=== PATIENT | male | born 1980 | race Caucasian/White ===

== ENCOUNTER 2017-06-08 11:10 | Emergency (ER) | payer OTHER ==
[2017-06-08 11:34] VITALS: BP 136/96; PULSE 77; RESP 18; TEMP 97.3
--- NOTE | 2017-06-08 12:30 | ED ---
General Adult HPI - General Chief complaint: Eye Problems Stated complaint: FB RT EYE - [facility] Time Seen by Provider: 06/08/17 11:51 Source: patient, RN notes reviewed Mode of arrival: ambulatory Limitations: no limitations - History of Present Illness Initial comments: Patient 37-year-old male who presents emergency room today with a chief complaint of right eye irritation off-and-on over the last 4 days. Patient does admit that he was at work 4 days ago. He states he had safety goggles on using a grinding wheel above his head. He states he felt something instantly into the right eye. He states he went to flush out. He states it lasted for approximately 20 minutes and then began feeling better. He states that he's had the symptoms come and go over the last 4 days. He states at this time is currently feeling fine. He states at times she feels a "sharp" type pain in the right eye. Patient denies any other complaints or symptoms. Patient denies any recent fever, chills, shortness of breath, chest pain, back pain, abdominal pain, nausea or vomiting, numbness or tingling, dysuria or hematuria, constipation or diarrhea, headaches, or any other complaints. - Related Data Home Medications Medication Instructions Recorded Confirmed Citalopram Hydrobromide [CeleXA] 20 mg PO DAILY 06/08/17 06/08/17 Famotidine [Pepcid] 20 mg PO BID 06/08/17 06/08/17 Losartan-Hctz 50-12.5 mg [Hyzaar 1 tab PO DAILY 06/08/17 06/08/17 50-12.5] Previous Rx's Medication Instructions Recorded Tobramycin 0.3% Ophth Soln [Tobrex 1 - 2 drop BOTH EYES QID 7 Days 06/08/17 0.3% Ophth Soln] Allergies Allergy/AdvReac Type Severity Reaction Status Date / Time Penicillins Allergy Rash/Hives Verified 06/08/17 11:38 Review of Systems ROS Statement: Those systems with pertinent positive or pertinent negative responses have been documented in the HPI. ROS Other: All systems not noted in ROS Statement are negative. Past Medical History Past Medical History: GERD/Reflux, Hypertension Additional Past Medical History / Comment(s): anxiety History of Any Multi-Drug Resistant Organisms: None Reported Past Surgical History: No Surgical Hx Reported, Tonsillectomy Past Psychological History: No Psychological Hx Reported Smoking Status: Never smoker Past Alcohol Use History: Daily Past Drug Use History: None Reported General Exam - General Exam Comments Initial Comments: General: The patient is awake and alert, in no distress, and does not appear acutely ill. Eye: Pupils are equal, round and reactive to light, extra-ocular movements are intact. No nystagmus. Mild redness to the right conjunctiva. No signs of icterus. Ears, nose, mouth and throat: There are moist mucous membranes and no oral lesions. Neck: The neck is supple, there is no tenderness or JVD. Cardiovascular: There is a regular rate and rhythm. No murmur, rub or gallop is appreciated. Respiratory: Lungs are clear to auscultation, respirations are non-labored, breath sounds are equal. No wheezes, stridor, rales, or rhonchi. Musculoskeletal: Normal ROM, no tenderness. Strength 5/5. Sensation intact. Pulses equal bilaterally 2+. Neurological: A&O x 3. CN II-XII intact, There are no obvious motor or sensory deficits. Coordination appears grossly intact. Speech is normal. Skin: Skin is warm and dry and no rashes or lesions are noted. Psychiatric: Cooperative, appropriate mood & affect, normal judgment. Limitations: no limitations Course Vital Signs 06/08/17 11:31 Temperature 97.3 F L Pulse Rate 77 Respiratory 18 Rate Blood Pressure 136/96 O2 Sat by Pulse 99 Oximetry Procedures - Procedures Initial comment: Patient's right eye was stained and checked with forcing with Wood's lamp revealing no foreign bodies. Lids were inverted and no foreign body seen. Slit lamp exam was also been performed revealing no abnormality. Medical Decision Making - Medical Decision Making Case discussed in detail with attending physician Dr. Núñez. Patient reexamined at this time shows no signs of distress resting comfortably. Patient 's CT reviewed and does show no sign of foreign body to right eye. Patient's pain and injury was to the right eye. Patient's CT does reveal possible calcification versus metallic foreign body in the left. This is felt to be most likely a calcification as there is no injury or trauma and no symptoms to the left eye. Patient will be started on antibiotic drops advised to follow-up with client service executive. Disposition Clinical Impression: Pain, eye, right Disposition: HOME SELF-CARE Condition: Good Instructions: Eye Foreign Body (ED) Additional Instructions: Please use antibiotic drops as prescribed and follow-up the client service executive tomorrow. Please return to emergency room if any symptoms increase or worsen or for any other concerns. Prescriptions: Tobramycin 0.3% Ophth Soln [Tobrex 0.3% Ophth Soln] 1 - 2 drop BOTH EYES QID 7 Days Referrals: Corby Zhou MD [Primary Care Provider] - 1-2 days Miko Valadez MD [STAFF PHYSICIAN] - 1-2 days Time of Disposition: 13:51
--- NOTE | 2017-06-08 13:12 | CT ---
EXAMINATION TYPE: CT orbits wo con DATE OF EXAM: 06/08/2017 COMPARISON: NONE HISTORY: Foreign body Rt eye CT DLP: 478.7 mGycm Automated exposure control for dose reduction was used. FINDINGS: Helical imaging through the orbits. Coronal reconstructions. There is metallic density coursing along the distribution of the superior oblique muscle on the left which is asymmetric. Lack of contrast could limit the exam. The globes show symmetric appearance. No other radiopaque foreign body evident. Inflammatory change present within the left maxillary sinus. O stiomeatal units are patent. IMPRESSION: METALLIC DENSITY PRESENT ON THE LEFT MAY BE RELATED TO THE TROCHLEA OF THE SUPERIOR OBLIQUE MUSCLE AL THOUGH THIS IS A SYMMETRIC APPEARANCE. POSSIBLE MUCUS RETENTION CYST OR POLYP IN THE LEFT MAXILLARY S INUS.
== END 2017-06-08 14:29 | disposition home or self-care (01) ==
LOC: EC 11:10
DX: H57.11 Ocular pain, right eye (principal); I10 Essential (primary) hypertension; K21.9 Gastro-esophageal reflux disease without esophagitis; F41.9 Anxiety disorder, unspecified; Z79.899 Other long term (current) drug therapy; Z88.0 Allergy status to penicillin
CPT/HCPCS: 70480; 99283

== ENCOUNTER 2018-04-29 09:27 | Emergency (ER) | payer MEDICARE ==
[2018-04-29 09:36] VITALS: RESP 18
[2018-04-29] MEDS ORDERED: SODIUM CHLORIDE 0.9% 1,000 ML IV STA (09:46)
--- NOTE | 2018-04-29 09:48 | ED ---
Abdominal Pain HPI - General Chief Complaint: Abdominal Pain Stated Complaint: LLQ PAIN Time Seen by Provider: 04/29/18 09:37 Source: patient, RN notes reviewed Mode of arrival: ambulatory Limitations: no limitations - History of Present Illness Initial Comments: 38-year-old male present emergency department with chief complaint of left lower quadrant abdominal pain. He states he had no symptoms yesterday but states that he woke up around 4:00 this morning with stabbing pain in his left lower quadrant. He has no history of diverticulitis or bowel infections. Denies any recent injury. He states he did have a vasectomy 2 weeks ago with symptoms of swelling and pain have improved from that. Patient reports fever no chills no night sweats. Denies any change of bowel habits including diarrhea melena mucus or blood. Patient states he's been urinating fine no dysuria no hematuria or urinary frequency. Patient states he has no back pain or flank pain and no history kidney stones. - Related Data Home Medications Medication Instructions Recorded Confirmed Citalopram Hydrobromide [CeleXA] 20 mg PO DAILY 06/08/17 04/29/18 Famotidine [Pepcid] 20 mg PO BID 06/08/17 04/29/18 Losartan-Hctz 50-12.5 mg [Hyzaar 1 tab PO DAILY 06/08/17 04/29/18 50-12.5] Previous Rx's Medication Instructions Recorded Ciprofloxacin HCl [Cipro] 500 mg PO Q12HR #20 tablet 04/29/18 metroNIDAZOLE [Flagyl] 500 mg PO TID #30 tab 04/29/18 Allergies Allergy/AdvReac Type Severity Reaction Status Date / Time Penicillins Allergy Rash/Hives Verified 04/29/18 10:03 Review of Systems ROS Statement: Those systems with pertinent positive or pertinent negative responses have been documented in the HPI. ROS Other: All systems not noted in ROS Statement are negative. Past Medical History Past Medical History: GERD/Reflux, Hypertension Additional Past Medical History / Comment(s): anxiety History of Any Multi-Drug Resistant Organisms: None Reported Past Surgical History: Tonsillectomy Additional Past Surgical History / Comment(s): vasectomy Past Psychological History: No Psychological Hx Reported Smoking Status: Never smoker Past Alcohol Use History: Daily Past Drug Use History: None Reported General Exam Limitations: no limitations General appearance: alert, in no apparent distress Respiratory exam: Present: normal lung sounds bilaterally. Absent: respiratory distress, wheezes, rales, rhonchi, stridor Cardiovascular Exam: Present: regular rate, normal rhythm, normal heart sounds. Absent: systolic murmur, diastolic murmur, rubs, gallop, clicks GI/Abdominal exam: Present: soft, tenderness (Moderate left lower quadrant tenderness), normal bowel sounds. Absent: distended, guarding, rebound, rigid Back exam: Absent: CVA tenderness (R), CVA tenderness (L) Skin exam: Present: warm, dry, intact, normal color. Absent: rash Course Vital Signs 04/29/18 04/29/18 09:33 11:23 Temperature 98.3 F 98.2 F Pulse Rate 88 74 Respiratory 18 18 Rate Blood Pressure 124/84 119/74 O2 Sat by Pulse 97 97 Oximetry Medical Decision Making - Medical Decision Making 38-year-old male present emergency from for left lower quadrant abdominal pain. Patient had laboratory, CT which shows evidence of moderate diverticulitis. There is no abscess or perforation. Patient will be started on Cipro, Flagyl and follow-up with on-call surgery. Return parameters were discussed. - Lab Data Result diagrams: 04/29/18 10:21 04/29/18 10:21 Lab Results 04/29/18 04/29/18 04/29/18 Range/Units 10:21 10:21 10:21 WBC 12.6 H (3.8-10.6) k/uL RBC 4.97 (4.30-5.90) m/uL Hgb 15.5 (13.0-17.5) gm/dL Hct 44.2 (39.0-53.0) % MCV 89.0 (80.0-100.0) fL MCH 31.3 (25.0-35.0) pg MCHC 35.1 (31.0-37.0) g/dL RDW 12.4 (11.5-15.5) % Plt Count 279 (150-450) k/uL PT (9.0-12.0) sec INR (<1.2) APTT (22.0-30.0) sec Sodium 138 (137-145) mmol/L Potassium 4.5 (3.5-5.1) mmol/L Chloride 103 (98-107) mmol/L Carbon Dioxide 23 (22-30) mmol/L Anion Gap 12 mmol/L BUN 15 (9-20) mg/dL Creatinine 0.74 (0.66-1.25) mg/dL Est GFR (CKD-EPI)AfAm >90 (>60 ml/min/1.73 sqM) Est GFR (CKD-EPI)NonAf >90 (>60 ml/min/1.73 sqM) Glucose 112 H (74-99) mg/dL Plasma Lactic Acid Krishna 0.6 L (0.7-2.0) mmol/L Calcium 9.4 (8.4-10.2) mg/dL Total Bilirubin 1.3 (0.2-1.3) mg/dL AST 26 (17-59) U/L ALT 72 (21-72) U/L Alkaline Phosphatase 65 (38-126) U/L Total Protein 7.0 (6.3-8.2) g/dL Albumin 4.2 (3.5-5.0) g/dL Amylase 42 (30-110) U/L Lipase 45 (23-300) U/L Urine Color Urine Appearance (Clear) Urine pH (5.0-8.0) Ur Specific [place] (1.001-1.035) Urine Protein (Negative) Urine Glucose (UA) (Negative) Urine Ketones (Negative) Urine Blood (Negative) Urine Nitrite (Negative) Urine Bilirubin (Negative) Urine Urobilinogen (<2.0) mg/dL Ur Leukocyte Esterase (Negative) Urine RBC (0-5) /hpf Urine WBC (0-5) /hpf Urine Mucus (None) /hpf 04/29/18 04/29/18 Range/Units 10:21 10:21 WBC (3.8-10.6) k/uL RBC (4.30-5.90) m/uL Hgb (13.0-17.5) gm/dL Hct (39.0-53.0) % MCV (80.0-100.0) fL MCH (25.0-35.0) pg MCHC (31.0-37.0) g/dL RDW (11.5-15.5) % Plt Count (150-450) k/uL PT 10.3 (9.0-12.0) sec INR 1.1 (<1.2) APTT 24.5 (22.0-30.0) sec Sodium (137-145) mmol/L Potassium (3.5-5.1) mmol/L Chloride (98-107) mmol/L Carbon Dioxide (22-30) mmol/L Anion Gap mmol/L BUN (9-20) mg/dL Creatinine (0.66-1.25) mg/dL Est GFR (CKD-EPI)AfAm (>60 ml/min/1.73 sqM) Est GFR (CKD-EPI)NonAf (>60 ml/min/1.73 sqM) Glucose (74-99) mg/dL Plasma Lactic Acid Krishna (0.7-2.0) mmol/L Calcium (8.4-10.2) mg/dL Total Bilirubin (0.2-1.3) mg/dL AST (17-59) U/L ALT (21-72) U/L Alkaline Phosphatase (38-126) U/L Total Protein (6.3-8.2) g/dL Albumin (3.5-5.0) g/dL Amylase (30-110) U/L Lipase (23-300) U/L Urine Color Yellow Urine Appearance Clear (Clear) Urine pH 5.5 (5.0-8.0) Ur Specific [place] 1.026 (1.001-1.035) Urine Protein Trace H (Negative) Urine Glucose (UA) Negative (Negative) Urine Ketones Negative (Negative) Urine Blood Trace H (Negative) Urine Nitrite Negative (Negative) Urine Bilirubin Negative (Negative) Urine Urobilinogen <2.0 (<2.0) mg/dL Ur Leukocyte Esterase Negative (Negative) Urine RBC <1 (0-5) /hpf Urine WBC <1 (0-5) /hpf Urine Mucus Many H (None) /hpf Disposition Clinical Impression: Diverticulitis Disposition: HOME SELF-CARE Condition: Stable Instructions: Diverticulitis Diet (ED), Diverticulitis (ED) Additional Instructions: Please return to the Emergency Department if symptoms worsen or any other concerns. Prescriptions: Ciprofloxacin HCl [Cipro] 500 mg PO Q12HR #20 tablet metroNIDAZOLE [Flagyl] 500 mg PO TID #30 tab Is patient prescribed a controlled substance at d/c from ED?: No Referrals: Corby Zhou MD [Primary Care Provider] - 1-2 days Lea Rodriguez MD [STAFF PHYSICIAN] - 1-2 days Time of Disposition: 11:45
[2018-04-29 10:40] LABS: HCT 44.2 % (39.0-53.0); HGB 15.5 gm/dL (13.0-17.5); MCH 31.3 pg (25.0-35.0); MCHC 35.1 g/dL (31.0-37.0); Mean Platelet Volume 6.7; Platelet Count 279 k/uL (150-450); RBC 4.97 m/uL (4.30-5.90); RDW 12.4 % (11.5-15.5); WBC 12.6 k/uL (3.8-10.6)
[2018-04-29 10:47] LABS: Appearance,Urine Clear (Clear); Bilirubin,Urine Negative (Negative); Blood,Urine Trace (Negative); Color,Urine Yellow; Glucose,Urine (UA) Negative (Negative); Ketones,Urine Negative (Negative); Leukocyte Esterase,Urine Negative (Negative); Mucus,Urine Many /hpf; Nitrite,Urine Negative (Negative); PH, Urine 5.5 (5.0-8.0); Protein,Urine Trace (Negative); RBC,Urine <1 /hpf (0-5); Specific Gravity,Urine 1.026 (1.001-1.035); Urobilinogen,Urine <2.0 mg/dL (<2.0); WBC,Urine <1 /hpf (0-5)
[2018-04-29 10:50] LABS: INR 1.1 (<1.2); Partial Thromboplastin Time 24.5 sec (22.0-30.0); Prothrombin Time 10.3 sec (9.0-12.0)
[2018-04-29 10:53] LABS: ALT 72 U/L (21-72); AST 26 U/L (17-59); Albumin 4.2 g/dL (3.5-5.0); Alkaline Phosphatase 65 U/L (38-126); Amylase 42 U/L (30-110); Anion Gap 12 mmol/L; Blood Urea Nitrogen 15 mg/dL (9-20); Calcium 9.4 mg/dL (8.4-10.2); Carbon Dioxide 23 mmol/L (22-30); Chloride 103 mmol/L (98-107); Glucose 112 mg/dL (74-99); Lipase 45 U/L (23-300); Potassium 4.5 mmol/L (3.5-5.1); Sodium 138 mmol/L (137-145); Total Bilirubin 1.3 mg/dL (0.2-1.3)
--- NOTE | 2018-04-29 11:15 | CT ---
EXAMINATION TYPE: CT abdomen pelvis w con DATE OF EXAM: 04/29/2018 COMPARISON: None HISTORY: Left lower quadrant pain since 4:[address] DLP: 1768.7 mGycm, Automated Exposure Control for Dose Reduction was Utilized. CONTRAST: CT scan of the abdomen and pelvis is performed without oral but with IV Contrast, patient injected wi th 100 mL of Isovue 300. FINDINGS: LUNG BASES: Dependent atelectasis is present bilaterally . LIVER/GB: Liver is diffusely low dense consistent with fatty infiltration. PANCREAS: No significant abnormality is seen. SPLEEN: No significant abnormality is seen. ADRENALS: No significant abnormality is seen. KIDNEYS: No significant abnormality is seen. BOWEL: Evaluation of bowel is slightly suboptimal secondary to lack of enteric contrast. There is non distended stomach seen. There is no suspicious small bowel dilatation. There are a few scattered diverticula in the colon. There is a prominent diverticulum left lower quad rant near junction of left and sigmoid colon axial image 42 with moderate ill-defined fluid and fat s tranding. Findings are consistent with acute diverticulitis. There is mild wall thickening of the col on from the splenic flexure through the rectum. This is presumed product of poor distention, a mild u nderlying long segment colitis is not excluded. There is no well-formed fluid collection or abscess. There is no pneumoperitoneum identified. PROSTATE/SEMINAL VESICLES: No gross abnormality seen. LYMPH NODES: No greater than 1cm abdominal or pelvic lymph nodes are appreciated. OSSEOUS STRUCTURES: There is transitional type L5 vertebra which is sacralized on the left. OTHER: There is small amount of free fluid in pelvis axial image 84. IMPRESSION: CT findings are consistent with a focal moderate acute diverticulitis in the left lower q uadrant near junction of left and sigmoid colon.
[2018-04-29 11:24] VITALS: BP 119/74; PULSE 74; TEMP 98.2
[2018-04-29 12:01] LABS: Eosinophils # (M) 0.13 k/uL (0-0.7); Lymphocytes # (M) 4.03 k/uL (1.0-4.8); Monocytes # (M) 0.63 k/uL (0-1.0); Neutrophils # (M) 7.81 k/uL (1.3-7.7); Neutrophils % (M) 62 %; Nucleated Red Blood Cells 0 /100 WBC (0-0); Total Cells Counted 100
[2018-04-29 12:02] LABS: Large Platelets Present
== END 2018-04-29 12:07 | disposition home or self-care (01) ==
LOC: EC 09:27
DX: K57.92 Diverticulitis of intestine, part unspecified, without perforation or abscess without bleeding (principal); K21.9 Gastro-esophageal reflux disease without esophagitis; I10 Essential (primary) hypertension; F41.9 Anxiety disorder, unspecified; Z98.52 Vasectomy status; Z79.899 Other long term (current) drug therapy; Z88.0 Allergy status to penicillin
CPT/HCPCS: 36415; 80053; 82150; 83605; 83690; 85025; 85610; 85730; 81001; 87040; 74177; 99284; 96360; Q9967

== ENCOUNTER 2019-12-21 08:47 | Emergency (ER) | payer MEDICARE ==
[2019-12-21] MEDS ORDERED: MORPHINE SULFATE 4 MG/ML SYRINGE IV STA (09:07)
[2019-12-21] MEDS ORDERED: KETOROLAC 30 MG/ML 1 ML VIAL IVP STA (09:07)
[2019-12-21] MEDS ORDERED: ONDANSETRON 4 MG/2 ML VIAL IVP STA (09:07)
[2019-12-21] MEDS ORDERED: SODIUM CHLORIDE 0.9% 1,000 ML IV STA ×2 (09:07)
--- NOTE | 2019-12-21 09:10 | ED ---
Abdominal Pain HPI - General Chief Complaint: Abdominal Pain Stated Complaint: abdominal pain Time Seen by Provider: 12/21/19 08:53 Source: patient, RN notes reviewed, old records reviewed Mode of arrival: ambulatory Limitations: no limitations - History of Present Illness Initial Comments: Patient is a pleasant 39-year-old male presents emergency department today for evaluation for 3 days of general nausea, "knots in his stomach and ". Patient reports that he's had some soft stools yesterday. Patient reports that his main concern was the pain seemed to be worsening in his lower abdomen and into his right scrotum and right testicle over the past few hours. 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 Patient reports that he has had no specific fevers or chills. He did notice that his urine has been somewhat darker than normal. Patient denies any associated chest pain or shortness of breath. - Related Data Home Medications Medication Instructions Recorded Confirmed Citalopram Hydrobromide [CeleXA] 20 mg PO DAILY 06/08/17 04/29/18 Famotidine [Pepcid] 20 mg PO BID 06/08/17 04/29/18 Losartan-Hctz 50-12.5 mg [Hyzaar 1 tab PO DAILY 06/08/17 04/29/18 50-12.5] Previous Rx's Medication Instructions Recorded Ciprofloxacin HCl [Cipro] 500 mg PO Q12HR #20 tablet 04/29/18 metroNIDAZOLE [Flagyl] 500 mg PO TID #30 tab 04/29/18 Ibuprofen [Motrin] 600 mg PO Q8HR PRN #30 tab 12/21/19 Allergies Allergy/AdvReac Type Severity Reaction Status Date / Time Penicillins Allergy Rash/Hives Verified 12/21/19 08:52 Review of Systems ROS Statement: Those systems with pertinent positive or pertinent negative responses have been documented in the HPI. ROS Other: All systems not noted in ROS Statement are negative. Past Medical History Past Medical History: GERD/Reflux, Hypertension Additional Past Medical History / Comment(s): anxiety History of Any Multi-Drug Resistant Organisms: None Reported Past Surgical History: Tonsillectomy Additional Past Surgical History / Comment(s): vasectomy Past Psychological History: No Psychological Hx Reported Smoking Status: Never smoker Past Alcohol Use History: Occasional Past Drug Use History: None Reported General Exam - General Exam Comments Initial Comments: 39 year old male no distress. Limitations: no limitations General appearance: alert, in no apparent distress Head exam: Present: atraumatic, normocephalic, normal inspection Eye exam: Present: normal appearance, PERRL, EOMI. Absent: scleral icterus, conjunctival injection, periorbital swelling ENT exam: Present: normal exam, mucous membranes moist Neck exam: Present: normal inspection. Absent: tenderness, meningismus, lymphadenopathy Respiratory exam: Present: normal lung sounds bilaterally. Absent: respiratory distress, wheezes, rales, rhonchi, stridor Cardiovascular Exam: Present: regular rate, normal rhythm, normal heart sounds. Absent: systolic murmur, diastolic murmur, rubs, gallop, clicks GI/Abdominal exam: Present: soft, normal bowel sounds. Absent: distended, tenderness, guarding, rebound, rigid exam: Present: testicular tenderness (right ) Extremities exam: Present: normal inspection, full ROM, normal capillary refill. Absent: tenderness, pedal edema, joint swelling, calf tenderness Back exam: Present: normal inspection Neurological exam: Present: alert, oriented X3, CN II-XII intact Psychiatric exam: Present: normal affect, normal mood Skin exam: Present: warm, dry, intact, normal color. Absent: rash Course Vital Signs 12/21/19 12/21/19 08:49 12:59 Temperature 98.6 F 98.1 F Pulse Rate 79 71 Respiratory 18 17 Rate Blood Pressure 132/72 118/76 O2 Sat by Pulse 98 95 Oximetry Medical Decision Making - Medical Decision Making 39 year old male presents with nausea, testicular pain starting over 8 hours ago. Patient had normal labs and normal ua. Patient scrotal us shows no torsion. evidence of varicocele.Patient had ct showing possible small bowel ileus. Patient has no vomiting. Discussed case with doctor susi, whom also examined patient. Discussed for testicular pain to use antiinflammatory medication. - Lab Data Result diagrams: 12/21/19 09:34 12/21/19 09:34 Lab Results 12/21/19 12/21/19 12/21/19 Range/Units 09:34 09:34 09:34 WBC 8.3 (3.8-10.6) k/uL RBC 5.37 (4.30-5.90) m/uL Hgb 16.3 (13.0-17.5) gm/dL Hct 46.2 (39.0-53.0) % MCV 86.0 (80.0-100.0) fL MCH 30.3 (25.0-35.0) pg MCHC 35.2 (31.0-37.0) g/dL RDW 11.7 (11.5-15.5) % Plt Count 249 (150-450) k/uL Neutrophils % (Manual) 58 % Lymphocytes % (Manual) 35 % Monocytes % (Manual) 7 % Neutrophils # (Manual) 4.81 (1.3-7.7) k/uL Lymphocytes # (Manual) 2.91 (1.0-4.8) k/uL Monocytes # (Manual) 0.58 (0-1.0) k/uL Nucleated RBCs 0 (0-0) /100 WBC Manual Slide Review Performed RBC Morphology Normal PT 10.7 (9.0-12.0) sec INR 1.0 (<1.2) APTT 22.7 (22.0-30.0) sec Sodium (137-145) mmol/L Potassium (3.5-5.1) mmol/L Chloride (98-107) mmol/L Carbon Dioxide (22-30) mmol/L Anion Gap mmol/L BUN (9-20) mg/dL Creatinine (0.66-1.25) mg/dL Est GFR (CKD-EPI)AfAm (>60 ml/min/1.73 sqM) Est GFR (CKD-EPI)NonAf (>60 ml/min/1.73 sqM) Glucose (74-99) mg/dL Calcium (8.4-10.2) mg/dL Total Bilirubin (0.2-1.3) mg/dL AST (17-59) U/L ALT (4-49) U/L Alkaline Phosphatase (38-126) U/L Total Protein (6.3-8.2) g/dL Albumin (3.5-5.0) g/dL Amylase (30-110) U/L Lipase (23-300) U/L Urine Color Yellow Urine Appearance Clear (Clear) Urine pH 5.5 (5.0-8.0) Ur Specific [place] 1.040 H (1.001-1.035) Urine Protein 1+ H (Negative) Urine Glucose (UA) Negative (Negative) Urine Ketones Negative (Negative) Urine Blood Negative (Negative) Urine Nitrite Negative (Negative) Urine Bilirubin Negative (Negative) Urine Urobilinogen 2.0 (<2.0) mg/dL Ur Leukocyte Esterase Negative (Negative) Urine WBC 1 (0-5) /hpf Ur Squamous Epith Cells 1 (0-4) /hpf Urine Mucus Many H (None) /hpf Stool Occult Blood (Negative) 12/21/19 12/21/19 Range/Units 09:34 09:34 WBC (3.8-10.6) k/uL RBC (4.30-5.90) m/uL Hgb (13.0-17.5) gm/dL Hct (39.0-53.0) % MCV (80.0-100.0) fL MCH (25.0-35.0) pg MCHC (31.0-37.0) g/dL RDW (11.5-15.5) % Plt Count (150-450) k/uL Neutrophils % (Manual) % Lymphocytes % (Manual) % Monocytes % (Manual) % Neutrophils # (Manual) (1.3-7.7) k/uL Lymphocytes # (Manual) (1.0-4.8) k/uL Monocytes # (Manual) (0-1.0) k/uL Nucleated RBCs (0-0) /100 WBC Manual Slide Review RBC Morphology PT (9.0-12.0) sec INR (<1.2) APTT (22.0-30.0) sec Sodium 136 L (137-145) mmol/L Potassium 3.6 (3.5-5.1) mmol/L Chloride 100 (98-107) mmol/L Carbon Dioxide 26 (22-30) mmol/L Anion Gap 10 mmol/L BUN 16 (9-20) mg/dL Creatinine 0.66 (0.66-1.25) mg/dL Est GFR (CKD-EPI)AfAm >90 (>60 ml/min/1.73 sqM) Est GFR (CKD-EPI)NonAf >90 (>60 ml/min/1.73 sqM) Glucose 118 H (74-99) mg/dL Calcium 9.0 (8.4-10.2) mg/dL Total Bilirubin 0.5 (0.2-1.3) mg/dL AST 39 (17-59) U/L ALT 82 H (4-49) U/L Alkaline Phosphatase 89 (38-126) U/L Total Protein 7.3 (6.3-8.2) g/dL Albumin 4.4 (3.5-5.0) g/dL Amylase 42 (30-110) U/L Lipase 115 (23-300) U/L Urine Color Urine Appearance (Clear) Urine pH (5.0-8.0) Ur Specific [place] (1.001-1.035) Urine Protein (Negative) Urine Glucose (UA) (Negative) Urine Ketones (Negative) Urine Blood (Negative) Urine Nitrite (Negative) Urine Bilirubin (Negative) Urine Urobilinogen (<2.0) mg/dL Ur Leukocyte Esterase (Negative) Urine WBC (0-5) /hpf Ur Squamous Epith Cells (0-4) /hpf Urine Mucus (None) /hpf Stool Occult Blood Negative (Negative) - Radiology Data Radiology results: report reviewed KUB shows normal bowel gas pattern. US scrotum shows varicocele. CT shows multiple loops of upper limits normal size bowel inlet abdomen with airlfluid levels and decompressed small bowel in right lower quadrant. No transition point seen and small bowel ileum is favored. hepatic steatosis appearing moderate grade with probable focal fatty sparing near gallbladder fossa. Disposition Clinical Impression: Testicular pain, Nausea Disposition: HOME SELF-CARE Condition: Good Instructions (If sedation given, give patient instructions): Varicocele (ED), Testicle Pain (ED) Additional Instructions: Please use medication as discussed. Please follow up with family doctor if symptoms have not improved over the next two days. Please return to the emergency room if your symptoms increase or worsen or for any other concern. Prescriptions: Ibuprofen [Motrin] 600 mg PO Q8HR PRN #30 tab PRN Reason: Pain Is patient prescribed a controlled substance at d/c from ED?: No Referrals: Corby Zhou MD [Primary Care Provider] - 1-2 days Time of Disposition: 12:45
--- NOTE | 2019-12-21 10:07 | XR ---
EXAMINATION TYPE: XR KUB DATE OF EXAM: 12/21/2019 COMPARISON: None INDICATION: Abdomen pain x4 days TECHNIQUE: Single view abdomen upright view FINDINGS: Colonic bowel gas is present. No suspicious differential air-fluid levels are present. No mass effect is evident Psoas margins are normal. No organomegaly is present. IMPRESSION: 1. Nonspecific colonic bowel gas.
[2019-12-21 10:09] LABS: Appearance,Urine Clear (Clear); Bilirubin,Urine Negative (Negative); Blood,Urine Negative (Negative); Color,Urine Yellow; Glucose,Urine (UA) Negative (Negative); Ketones,Urine Negative (Negative); Leukocyte Esterase,Urine Negative (Negative); Mucus,Urine Many /hpf; Nitrite,Urine Negative (Negative); PH, Urine 5.5 (5.0-8.0); Protein,Urine 1+ (Negative); Squamous Epithelial Cell,Urine 1 /hpf (0-4); WBC,Urine 1 /hpf (0-5)
[2019-12-21 10:15] LABS: ALT 82 U/L (4-49); AST 39 U/L (17-59); African American GFR (CKD) >90 (>60 ml/min/1.73 sqM); Albumin 4.4 g/dL (3.5-5.0); Alkaline Phosphatase 89 U/L (38-126); Amylase 42 U/L (30-110); Anion Gap 10 mmol/L; Blood Urea Nitrogen 16 mg/dL (9-20); Carbon Dioxide 26 mmol/L (22-30); Chloride 100 mmol/L (98-107); Glucose 118 mg/dL (74-99); Non-African American GFR(CKD) >90 (>60 ml/min/1.73 sqM); Potassium 3.6 mmol/L (3.5-5.1); Sodium 136 mmol/L (137-145); Total Bilirubin 0.5 mg/dL (0.2-1.3); Total Protein 7.3 g/dL (6.3-8.2)
[2019-12-21 10:21] LABS: Partial Thromboplastin Time 22.7 sec (22.0-30.0); Prothrombin Time 10.7 sec (9.0-12.0)
[2019-12-21 10:24] LABS: HCT 46.2 % (39.0-53.0); HGB 16.3 gm/dL (13.0-17.5); MCH 30.3 pg (25.0-35.0); MCHC 35.2 g/dL (31.0-37.0); Mean Platelet Volume 7.6; Platelet Count 249 k/uL (150-450); RBC 5.37 m/uL (4.30-5.90); RDW 11.7 % (11.5-15.5); WBC 8.3 k/uL (3.8-10.6)
--- NOTE | 2019-12-21 10:37 | US ---
EXAMINATION TYPE: US scrotum with doppler. Grayscale and color Doppler Duplex imaging performed of t he scrotum. DATE OF EXAM: 12/21/2019 COMPARISON: NONE CLINICAL HISTORY: right testicular pain. EXAM MEASUREMENTS: TESTICLES: Right Testicle: 3.7 x 2.0 x 2.9 cm Left Testicle: 4.2 x 1.9 x 2.7 cm EPIDIDYMIS HEAD: Right Epididymis: 0.6 cm Left Epididymis: 0.8 cm Doppler performed to assess for testicular vascularity; good bilateral color flow and waveforms are s een. There is no evidence of testicular torsion. Presence of hydroceles: No Presence of varicoceles: Yes, small on the left Slightly prominent and hypervascular right side epididymis, possible right sided epididymitis IMPRESSION: 1. Small left-sided varicoceles
[2019-12-21 10:38] LABS: Lymphocytes # (M) 2.91 k/uL (1.0-4.8); Monocytes # (M) 0.58 k/uL (0-1.0); Neutrophils # (M) 4.81 k/uL (1.3-7.7); Neutrophils % (M) 58 %; Nucleated Red Blood Cells 0 /100 WBC (0-0); Total Cells Counted 100
--- NOTE | 2019-12-21 11:35 | CT ---
EXAMINATION TYPE: CT abdomen pelvis w con DATE OF EXAM: 12/21/2019 COMPARISON: Scrotal ultrasound of the same date and CT dated 04/29/2018 HISTORY: scrotal pain CT DLP: 1778 mGycm Automated exposure control for dose reduction was used. TECHNIQUE: Helical acquisition of images was performed from the lung bases through the pelvis. CONTRAST: Performed without Oral Contrast and with IV Contrast, patient injected with 100 mL of Isovue 300. FINDINGS: LUNG BASES: Minimal bibasilar subsegmental dependent atelectasis LIVER/GB: Hepatic parenchyma is diffusely hypoattenuated in comparison to that of the spleen, most co mmonly seen in hepatic steatosis. This finding limits evaluation for hepatic masses. There is probabl e focal fatty sparing around the gallbladder fossa with relative hyperattenuation. No intrahepatic bi liary ductal dilatation. No cholelithiasis. PANCREAS: No significant abnormality is seen. SPLEEN: No significant abnormality is seen. ADRENALS: No nodularity or thickening. KIDNEYS: No hydronephrosis or nephrolithiasis. FREE AIR: No free air is visualized. ADENOPATHY: No greater than 1 cm short axis lymph node in the abdomen or pelvis. OSSEOUS STRUCTURES: Nonspecific lucent lesion of the left iliac bone measures 8 mm appearing stable from 2018. BOWEL: Small bowel loops are upper limits of normal size containing few air-fluid levels in the left mid abdomen. Although no transition point is seen the small bowel loops in the right mid abdomen and right lower quadrant are decompressed. There is an appendicolith in the nondilated appendix. No darlin appendiceal fat stranding. Descending colon is decompressed. IMPRESSION: 1. MULTIPLE LOOPS OF UPPER LIMITS NORMAL SIZE SMALL BOWEL IN THE LEFT MID ABDOMEN WITH AIR-FLUID LEVE LS AND DECOMPRESSED SMALL BOWEL IN THE RIGHT LOWER QUADRANT. NO DISTINCT TRANSITION POINT IS SEEN AND SMALL BOWEL ILEUS IS FAVORED. 2. HEPATIC STEATOSIS APPEARING MODERATE GRADE WITH PROBABLE FOCAL FATTY SPARING NEAR THE GALLBLADDER FOSSA.
[2019-12-21 13:00] VITALS: BP 118/76; PULSE 71; RESP 17; TEMP 98.1
== END 2019-12-21 13:01 | disposition home or self-care (01) ==
LOC: EC 08:47
DX: N50.811 Right testicular pain (principal); R11.0 Nausea; K21.9 Gastro-esophageal reflux disease without esophagitis; I10 Essential (primary) hypertension; F41.9 Anxiety disorder, unspecified; Z79.899 Other long term (current) drug therapy; Z88.0 Allergy status to penicillin
CPT/HCPCS: 36415; 80053; 82150; 83690; 85025; 85610; 85730; 82272; 81001; 74018; 93975; 76870; 74177; 99285; 96374; 96375 ×2; 96361 ×3; J2270; J2405; J1885; Q9967

== ENCOUNTER → 2019-12-31 | Day surgery (SDC) | payer MEDICARE, OTHER | CPT/HCPCS: 88305; 45378; 43239; J2250; J2001; J3010; J2704 ==

== ENCOUNTER 2020-07-14 20:46 | Emergency (ER) | payer OTHER ==
[2020-07-14 20:53] VITALS: RESP 18; TEMP 97.8
--- NOTE | 2020-07-14 20:57 | ED ---
Upper Extremity HPI - General Chief Complaint: Extremity Injury, Upper Stated Complaint: R Arm Injury Time Seen by Provider: 07/14/20 20:57 Source: patient Mode of arrival: ambulatory Limitations: no limitations - History of Present Illness Initial Comments: Patient is 40-year-old male presenting to the emergency department with chief complaint of right arm pain. Patient states he was going up a hill, lost balance and went backwards. States he attempted to brace himself during the fall with his right arm and developed pain. Patient states most of the pain is in his right elbow along the forearm as well. Patient states the pain is 10/10 and sharp in nature. States he does not want to move his arm due to pain. Denies any numbness or tingling. Denies taking medications to alleviate the symptoms. States this occurred about half hour prior to arrival. - Related Data Home Medications Medication Instructions Recorded Confirmed Omeprazole 20 mg PO DAILY 12/29/19 07/14/20 Losartan Potassium 100 mg PO DAILY 07/14/20 07/14/20 Metoprolol Succinate (ER) [Toprol 50 mg PO DAILY 07/14/20 07/14/20 Xl] Sildenafil Citrate 100 mg PO DAILY PRN 07/14/20 07/14/20 amLODIPine [Norvasc] 5 mg PO DAILY 07/14/20 07/14/20 hydroCHLOROthiazide [Hydrodiuril] 25 mg PO DAILY 07/14/20 07/14/20 Allergies Allergy/AdvReac Type Severity Reaction Status Date / Time Penicillins Allergy Rash/Hives Verified 07/14/20 21:43 Review of Systems ROS Statement: Those systems with pertinent positive or pertinent negative responses have been documented in the HPI. ROS Other: All systems not noted in ROS Statement are negative. Past Medical History Past Medical History: GERD/Reflux, Hypertension Additional Past Medical History / Comment(s): anxiety History of Any Multi-Drug Resistant Organisms: None Reported Past Surgical History: Tonsillectomy Additional Past Surgical History / Comment(s): vasectomy Past Anesthesia/Blood Transfusion Reactions: No Reported Reaction Past Psychological History: Anxiety Smoking Status: Never smoker Past Alcohol Use History: Occasional Past Drug Use History: None Reported - Past Family History Mother Family Medical History: No Reported History General Exam Limitations: no limitations General appearance: alert Head exam: Present: atraumatic, normocephalic, normal inspection Eye exam: Present: normal appearance, PERRL, EOMI Pupils: Present: normal accommodation ENT exam: Present: normal exam, normal oropharynx, mucous membranes moist, TM's normal bilaterally, normal external ear exam Neck exam: Present: normal inspection, full ROM. Absent: tenderness, meningismus Respiratory exam: Present: normal lung sounds bilaterally. Absent: respiratory distress, wheezes, rales Cardiovascular Exam: Present: regular rate, normal rhythm, normal heart sounds Extremities exam: Present: normal inspection (Some swelling noticed along the right distal forearm), tenderness (Tenderness along the midforearm and the distal forearm.), normal capillary refill, joint swelling (Mild swelling noted on the medial aspect right wrist.), other (+2 ulnar hemorrhage a pulse of bilateral. Sensation intact in the right upper extremity.). Absent: full ROM (Limited range of motion in the hand due to pain), pedal edema, calf tenderness Back exam: Present: normal inspection, full ROM. Absent: tenderness, CVA tenderness (R), CVA tenderness (L) Neurological exam: Present: alert, oriented X3, normal gait Psychiatric exam: Present: normal affect, normal mood Skin exam: Present: warm, dry, intact, normal color Course Vital Signs 07/14/20 20:48 Temperature 97.8 F Pulse Rate 87 Respiratory 18 Rate Blood Pressure 110/57 O2 Sat by Pulse 96 Oximetry Procedures - Nerve Block Consent Obtained: verbal consent Local Anesthetic Used: Lidocaine 1% Amount of anesthesia used: 6 Side: right Nerve Blocks: radial, hematoma block Procedure Successful: Yes Complications: none Patient Tolerated Procedure: well, no complications - Orthopedic Splinting/Casting Injury #1 Side: right Upper Extremity Injury Location: short arm Upper Extremity Immobilizer: volar splint, Yoni wrap, synthetic pre-padded splint Medical Decision Making - Medical Decision Making Patient is a 40-year-old male presenting to the emergency department with a chief complaint of right arm pain. On physical examination, patient is neurovascularly intact in the right upper extremity. He does have focal tenderness along the midshaft and distal forearm. Fracture was suspected he was immediately given IM morphine. Later, he also received IM Dilaudid. There is some swelling along the medial aspect of the distal forearm. X-ray reveals a metaphyseal fracture of the distal right radius. There is also an avulsion of the ulnar styloid. Hematoma block was performed which alleviated some of the discomfort. Finger traps were applied and the arm was left to hang for about 1 5-20 minutes. Short arm splint was applied. Patient was advised to alternate between Tylenol and Motrin for pain control. He was advised to follow with clinical pharmacy specialist. Strict return parameters were thoroughly discussed the patient was understanding ago. Case discussed with physician. Disposition Clinical Impression: Distal radius fracture, right, Fracture of ulnar styloid Disposition: HOME SELF-CARE Condition: Stable Instructions (If sedation given, give patient instructions): Arm Fracture in Adults (ED) Additional Instructions: Alternate between Tylenol and Motrin for pain control. Apply ice compress. Follow-up with orthopedics. Is patient prescribed a controlled substance at d/c from ED?: No Referrals: Ramón Zhou MD [STAFF PHYSICIAN] - 1-2 days Benedicto Dumont MD [STAFF PHYSICIAN] - 1-2 days Time of Disposition: 22:50
[2020-07-14] MEDS ORDERED: MORPHINE SULFATE 4 MG/ML SYRINGE IM STA (21:00)
--- NOTE | 2020-07-14 21:29 | XR ---
EXAMINATION TYPE: XR forearm RT DATE OF EXAM: 07/14/2020 COMPARISON: None HISTORY: Fall twisting arm, pain TECHNIQUE: 2 view right forearm FINDINGS: There is an impacted fracture of the distal metaphyseal radius. Ulnar styloid avulsion appe ars to be present. No additional fractures are evident. IMPRESSION: 1. Transverse fracture distal metaphyseal radius. 2. Ulnar styloid avulsion
--- NOTE | 2020-07-14 21:30 | XR ---
EXAMINATION TYPE: XR elbow complete RT DATE OF EXAM: 07/14/2020 COMPARISON: None HISTORY: Trauma, fall, pain TECHNIQUE: Three-view right elbow FINDINGS: Anterior fat pad is normal. No elevation of posterior fat pad is evident. Ulnar spur is pre sent from the olecranon. Radius aligns normally with the humerus. No acute fractures are evident. Follow-up images of the elbow could be performed 7-10 days from acute trauma for continued pain. IMPRESSION: 1. No acute osseous abnormality right elbow
[2020-07-14] MEDS ORDERED: LIDOCAINE 1% INJ 10MG/ML (20 ML MDV) SQ ONE (21:40)
[2020-07-14] MEDS ORDERED: HYDROmorphone 0.5 MG/0.5 ML SYRINGE IM STA (21:55)
[2020-07-14] MEDS ORDERED: GABAPENTIN 300 MG CAP PO STA (22:16)
[2020-07-14 23:04] VITALS: BP 106/65; PULSE 94
== END 2020-07-14 23:00 | disposition home or self-care (01) ==
LOC: EC 20:46
DX: S52.501A Unspecified fracture of the lower end of right radius, initial encounter for closed fracture (principal); S52.611A Displaced fracture of right ulna styloid process, initial encounter for closed fracture; I10 Essential (primary) hypertension; K21.9 Gastro-esophageal reflux disease without esophagitis; Z79.899 Other long term (current) drug therapy; Z88.0 Allergy status to penicillin; W17.89XA Other fall from one level to another, initial encounter; Y93.01 Activity, walking, marching and hiking; Y92.009 Unspecified place in unspecified non-institutional (private) residence as the place of occurrence of the external cause
CPT/HCPCS: 73080; 73090; 99283; 64450; 29125; 96372 ×2; J2270; J2001; J1170

== ENCOUNTER → 2021-02-07 | Outpatient (CLI) | payer OTHER ==
--- NOTE | 2021-02-07 21:48 | CONS ---
CONSULTATION DATE OF SERVICE: 02/07/2021. 41-year-old gentleman who has been evaluated in Sleep Center for sleepiness and tiredness, which he has after long hours of sleep. HISTORY OF PRESENT ILLNESS/SLEEP-WAKE EVALUATION: The patient sleeps by himself so no clear information about his snoring. He wakes up tired in the morning, has difficulties to pay attention, worry about his sleep, has problems with the memory, concentration, irritability, anxiety, sexual dysfunction, usually he does not take any naps. During the night he has feeling like he is falling. 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 on days off. No history of hypnagogic hallucinations, sleep paralysis or cataplexy. Ross Sleepiness Scale is 1. PAST MEDICAL HISTORY: Positive for hypothyroidism, hypertension, acid reflux. PAST SURGICAL HISTORY: Right arm fracture in 2019, tonsillectomy. MEDICATIONS: Synthroid 25 mcg once a day, omeprazole 20 mg once a day, Norvasc 5 mg once a day, hydrochlorothiazide once a day. Cozaar 100 mg once a day, metoprolol 50 mg once a day. SOCIAL HISTORY: Negative for smoking. Alcohol consumption occasional. FAMILY HISTORY: Arthritis, diabetes. REVIEW OF SYSTEMS: Feeling tired after long hours of sleep. On days off he sleeps from 2:00 pm until 8 a.m. No fevers. No double vision. No recent chest pain. No shortness of breath. No abdominal pain. No bleeding episodes. No blood in the urine. No seizure episodes. PHYSICAL EXAMINATION: GENERAL: gentleman without distress. BP 118/79, HR 85, RR 15, height 5 feet 8 inches, weight 234.2, temperature 97.8, oxygen saturation at room air 98%. BMI 35.5. HEENT: PERRLA, EOMI. Oropharynx low position of soft palate. Mallampati 3. Neck 16 inches in circumference. NECK: Supple, no JVD. Thyroid is not palpable. LUNGS: Clear to percussion and to auscultation. Good air exchange. No wheezing or rhonchi. HEART: S1, S2 regular. No murmurs, gallops, or rubs. ABDOMEN: Slightly obese. Soft and nontender. Bowel sounds are present. No organomegaly appreciated. EXTREMITIES: No clubbing or cyanosis. GUM WORKER: Awake, alert, and oriented X3. Cranial nerves 2 to 7 intact. There is no fasciculation or atrophy. noted. No focal deficits observed. IMPRESSION: 1. Feeling tiredness and sleepiness after many hours of sleep on days off. Patient sleeps from 2:00 pm until 8, 8:30 am, low position of soft palate, Mallampati 3, borderline size of neck, possible obstructive sleep apnea-hypopnea syndrome. 2. Differential diagnosis should include idiopathic hypersomnia with disordered people sleeps many hours. 3. Hypertension. 4. Acid reflux. 5. Hypothyroidism. 6. Status post tonsillectomy. 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 PLAN: 1. Polysomnography for evaluation of patient's breathing during sleep. 2. CPAP/BiPAP titration if sleep study confirms obstructive sleep apnea-hypopnea syndrome. 3. Preferable position during sleep on the side. 4. No driving if patient feels any sleepiness. 5. I will see patient for follow up visit to explain results of testing and following plan. Thank you very much for referring this patient for consultation. Sincerely, Delonte Rangel MD, PhD, FAASM Diplomat of [employer] Engineering Test Specialist of [facility] [place] MMODL / IJN: [id number] /
== END ==
LOC: SLEEP 16:34
PROVIDERS: ATTEND Internal Medicine
DX: R40.0 Somnolence (principal); E03.9 Hypothyroidism, unspecified; I10 Essential (primary) hypertension; K21.9 Gastro-esophageal reflux disease without esophagitis; Z90.09 Acquired absence of other part of head and neck
CPT/HCPCS: 99211

== ENCOUNTER → 2021-05-09 | Outpatient (CLI) | payer OTHER ==
--- NOTE | 2021-05-09 21:57 | SFUN ---
SLEEP CENTER FOLLOW UP NOTE DATE OF SERVICE: 05/09/2021 CLINICAL: 41-year-old gentleman has been followed in Sleep Center to discuss results of diagnostic polysomnogram and following plan. I discussed results of polysomnogram with the patient in detail. Total apnea-hypopnea index during the sleep study was 4.0, which considered to be in normal range by today's criteria, but amount of apnea-hypopnea index in REM sleep was significantly increased at 20.3. EMG showed significant amount of periodic limb movements of 25.3 times per hour but only 1.1 microarousals per hour. Patient continued to feel tiredness after awakenings from sleep. He does not feel refreshed after sleep. MEDICATIONS: Synthroid 25 mcg once a day, omeprazole 20 mg once a day, Norvasc 5 mg once a day, hydrochlorothiazide once a day. Cozaar 100 mg once a day, metoprolol 50 mg once a day. PHYSICAL EXAMINATION: GENERAL: Patient in no distress BP 125/75, HR 88, RR 15, height 5 feet 6 inches, weight 227, BMI 36.6, temperature 98.4. Oxygen saturation: 97%. HEENT: PERRLA, EOMI, evaluation of oropharynx showed tongue protrudes midline. On exam, oropharynx low position of soft palate. Mallampati III. Neck 16 inches in circumference. NECK: Supple, no JVD. Thyroid is not palpable. LUNGS: Clear to percussion and to auscultation. Good air exchange. No wheezing or rhonchi. HEART: S1, S2 regular. No murmurs, gallops, or rubs. ABDOMEN: Soft and nontender. Bowel sounds are present. No organomegaly appreciated. EXTREMITIES: No clubbing or cyanosis. ENTERPRISE APPLICATION ADMINISTRATOR: Awake, alert, and oriented X3. Cranial nerves 2 to 7 intact. There is no fasciculation or atrophy. No focal deficits observed. IMPRESSION: 1. Minimal abnormalities of respiration during the sleep. Total apnea-hypopnea index 4.0 with essentially to be in normal range by today's criteria. In REM sleep, overall, apnea-hypopnea index increased to 20.3. 2. Periodic limb movements have been documented during the sleep study 25.3 times per hour with 1.1 ( ) per hour. 3. Hypertension. 4. Acid reflux. 5. Anxiety. 6. Hypothyroidism. 7. Status post tonsillectomy. 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 PLAN: 1. I will start patient on treatment with Mirapex for periodic limb movements. I. 2. Will see patient for follow-up visit in about 2-3 months to evaluate clinical response and treatment. 3. The patient is still a candidate for the treatment with CPAP, I believe, although standard criterias today for treatment with CPAP were not met. 4. Aggressive losing weight program. 5. Preferable position during sleep on the side. 6. No driving if feeling sleepiness. Thank you very much for allowing me to participate in management of the patient. Sincerely, Delonte Rangel MD, PhD, FAASM Diplomat of [place] [employer] Sleep Medicine Board of [place] [employer]teration Hand [facility] [place] MMODL / AUGUSTN: [id number] /
== END ==
LOC: SLEEP 14:57
PROVIDERS: ATTEND Internal Medicine
DX: G47.30 Sleep apnea, unspecified (principal); G47.61 Periodic limb movement disorder; I10 Essential (primary) hypertension; K21.9 Gastro-esophageal reflux disease without esophagitis; F41.9 Anxiety disorder, unspecified; E03.9 Hypothyroidism, unspecified; Z90.09 Acquired absence of other part of head and neck; Z79.899 Other long term (current) drug therapy; Z88.0 Allergy status to penicillin

== ENCOUNTER 2024-01-29 11:22 | Emergency (ER) | payer OTHER ==
--- NOTE | 2024-01-29 11:58 | ED ---
URI HPI - General Chief Complaint: Upper Respiratory Infection Stated Complaint: SUSAN Time Seen by Provider: 01/29/24 11:40 Source: patient, RN notes reviewed Mode of arrival: ambulatory Limitations: no limitations - History of Present Illness Initial Comments: This is a 44-year-old male with history of hypertension and hypothyroidism who presents to the ED with chief complaint of cough, wheezing, shortness of breath over the past week and a half. Patient states that he initially went to an urgent care where he was prescribed promethazine discharged home. patient went to see his primary care provider on Friday where he was given a shot of steroid in addition to at home Tylenol and azithromycin. Patient states that he received another steroid shot yesterday. States he has taken 2 pills of the azithromycin. He denies known fevers at home did not have any thermometer yet states he has felt warm. States his cough is dry, however was productive with symptoms originally began. Denies history of asthma and or COPD. States he is taken Motrin at home relief. He was swabbed for flu and COVID last week which came back negative. States he has not had a chest x-ray. - Related Data Home Medications Medication Instructions Recorded Confirmed Omeprazole 20 mg PO DAILY 12/29/19 07/14/20 Losartan Potassium 100 mg PO DAILY 07/14/20 07/14/20 Metoprolol Succinate (ER) [Toprol 50 mg PO DAILY 07/14/20 07/14/20 Xl] Sildenafil Citrate 100 mg PO DAILY PRN 07/14/20 07/14/20 amLODIPine [Norvasc] 5 mg PO DAILY 07/14/20 07/14/20 hydroCHLOROthiazide [Hydrodiuril] 25 mg PO DAILY 07/14/20 07/14/20 Previous Rx's Medication Instructions Recorded Benzonatate [Tessalon Perles] 100 mg PO TID PRN #15 capsule 01/29/24 Allergies Allergy/AdvReac Type Severity Reaction Status Date / Time Penicillins Allergy Rash/Hives Verified 07/14/20 21:43 Review of Systems ROS Statement: Those systems with pertinent positive or pertinent negative responses have been documented in the HPI. ROS Other: All systems not noted in ROS Statement are negative. Past Medical History Past Medical History: GERD/Reflux, Hypertension Additional Past Medical History / Comment(s): anxiety History of Any Multi-Drug Resistant Organisms: None Reported Past Surgical History: Tonsillectomy Additional Past Surgical History / Comment(s): vasectomy Past Anesthesia/Blood Transfusion Reactions: No Reported Reaction Past Psychological History: Anxiety Smoking Status: Never smoker Past Alcohol Use History: Occasional Past Drug Use History: None Reported - Past Family History Mother Family Medical History: No Reported History General Exam Limitations: no limitations General appearance: alert, in no apparent distress Head exam: Present: atraumatic, normocephalic, normal inspection Eye exam: Present: normal appearance, PERRL, EOMI. Absent: scleral icterus, conjunctival injection, periorbital swelling ENT exam: Present: normal exam, mucous membranes moist Neck exam: Present: normal inspection. Absent: tenderness, meningismus, lymphadenopathy Respiratory exam: Present: normal lung sounds bilaterally, decreased breath sounds. Absent: respiratory distress, wheezes, rales, rhonchi, stridor Cardiovascular Exam: Present: regular rate, normal rhythm, normal heart sounds. Absent: systolic murmur, diastolic murmur, rubs, gallop, clicks GI/Abdominal exam: Present: soft, normal bowel sounds. Absent: distended, tenderness, guarding, rebound, rigid Extremities exam: Present: normal inspection, full ROM, normal capillary refill. Absent: tenderness, pedal edema, joint swelling, calf tenderness Back exam: Present: normal inspection Neurological exam: Present: alert, oriented X3, CN II-XII intact Psychiatric exam: Present: normal affect, normal mood Skin exam: Present: warm, dry, intact, normal color. Absent: rash Course Vital Signs 01/29/24 01/29/24 01/29/24 11:39 11:54 13:00 Temperature 98.1 F Pulse Rate 77 74 Respiratory 18 18 Rate Blood Pressure 117/76 O2 Sat by Pulse 97 Oximetry 01/29/24 01/29/24 13:08 13:12 Temperature 98.1 F Pulse Rate 76 72 Respiratory 18 Rate Blood Pressure 115/85 O2 Sat by Pulse 98 Oximetry Medical Decision Making - Medical Decision Making Was pt. sent in by a medical professional or institution (, PA, CHEMIC MANGLER, urgent care, hospital, or fpc...) When possible be specific @ -No Did you speak to anyone other than the patient for history (EMS, parent, family, police, friend...)? What history was obtained from this source @ -No Did you review nursing and triage notes (agree or disagree)? Why? @ -I reviewed and agree with nursing and triage notes Were old charts reviewed (outside hosp., previous admission, EMS record, old EKG, old radiological studies, urgent care reports/EKG's, fpc records)? Report findings @ -No old charts were reviewed Differential Diagnosis (chest pain, altered mental status, abdominal pain women, abdominal pain men, vaginal bleeding, weakness, fever, dyspnea, syncope, headache, dizziness, GI bleed, back pain, seizure, CVA, palpatations, mental health, musculoskeletal)? @COVID 19, RSV, influenza, pneumonia, acute bronchitis, URI, this list is not all inclusive EKG interpreted by me (3pts min.). @ -None X-rays interpreted by me (1pt min.). @ -Chest x-ray no acute cardiopulmonary process CT interpreted by me (1pt min.). @ -None done U/S interpreted by me (1pt. min.). @ -None done What testing was considered but not performed or refused? (CT, X-rays, U/S, labs)? Why? @ -None What meds were considered but not given or refused? Why? @ -None Did you discuss the management of the patient with other professionals (professionals i.e. , PA, CHEMIC MANGLER, lab, RT, psych nurse, social research assistant, body work auto trimmer, teacher, seal delivery vehicle officer, keycase assembler)? Give summary @ -No Was smoking cessation discussed for >3mins.? @ -No Was critical care preformed (if so, how long)? @ -No Were there social determinants of health that impacted care today? How? (Homelessness, low income, unemployed, alcoholism, drug addiction, transportation, low edu. Level, literacy, decrease access to med. care, group home, rehab)? @ -No Was there de-escalation of care discussed even if they declined (Discuss DNR or withdrawal of care, Hospice)? DNR status @ -No What co-morbidities impacted this encounter? (DM, HTN, Smoking, COPD, CAD, Cancer, CVA, ARF, Chemo, Hep., AIDS, mental health diagnosis, sleep apnea, morbid obesity)? @ -None Was patient admitted / discharged? Hospital course, mention meds given and route, prescriptions, significant lab abnormalities, going to OR and other pertinent info. @ -44-year-old male with complaint of shortness.. Patient sent for chest x-ray with no acute findings of pneumonia and or bronchitis. Discussed with patient. Options discussed with COVID, flu, RSV, patient declines at this time. Patient received DuoNeb breathing treatment, dates that his symptoms have improved after. Patient states that overall her symptoms have improved and he feels better today than he has in the last few days. Recommend that patient continues with prednisone in relation to azithromycin prescribed by his primary care provider. Patient provided with prescription for Tessalon pearls and instructed to follow up with PCP within the next week. Discussed with Dr. Queen. Undiagnosed new problem with uncertain prognosis? @ -No Drug Therapy requiring intensive monitoring for toxicity (Heparin, Nitro, Insulin, Cardizem)? @ -No Were any procedures done? @ -No Diagnosis/symptom? @ -common cold, cough, viral infection Acute, or Chronic, or Acute on Chronic? @ -acute Uncomplicated (without systemic symptoms) or Complicated (systemic symptoms)? @ -uncomplicated Side effects of treatment? @ -No Exacerbation, Progression, or Severe Exacerbation? @ -No Poses a threat to life or bodily function? How? (Chest pain, [place], [place], pneumonia, PE, COPD, DKA, ARF, appy, cholecystitis, CVA, Diverticulitis, Homicidal, Suicidal, threat to staff... and all critical care pts) @ -No Disposition Clinical Impression: Common cold, Cough in adult Narrative: Please return to the Emergency Department if symptoms worsen or any other concerns. Continue use of oral steroids in addition to azithromycin prescribed by your primary care provider. Use tessalon pearls as needed for cough. Disposition: HOME SELF-CARE Condition: Good Instructions (If sedation given, give patient instructions): Cold Symptoms (ED) Prescriptions: Benzonatate [Tessalon Perles] 100 mg PO TID PRN #15 capsule PRN Reason: Cough Is patient prescribed a controlled substance at d/c from ED?: No Referrals: Tram Alvarez MD [Primary Care Provider] - 1-2 days Time of Disposition: 12:50
[2024-01-29 12:16] VITALS: RESP 18; TEMP 98.1
--- NOTE | 2024-01-29 12:31 | XR ---
EXAMINATION TYPE: XR chest 2V DATE OF EXAM: 01/29/2024 COMPARISON: NONE HISTORY: Chest pain TECHNIQUE: Frontal and lateral views of the chest are obtained. FINDINGS: There is no focal air space opacity. No evidence for pneumothorax. No pleural effusion. The cardiac silhouette size is within normal limits. The osseous structures are grossly intact. IMPRESSION: 1. No acute cardiopulmonary process.
[2024-01-29] MEDS: IPRATROPIUM-ALBUTEROL 3 ML NEB INHALATION STA (12:59)
[2024-01-29 13:39] VITALS: PULSE 72
[2024-01-29 13:40] VITALS: BP 115/85
== END 2024-01-29 13:13 | disposition home or self-care (01) ==
LOC: EC 11:22
DX: J00 Acute nasopharyngitis [common cold] (principal); B34.9 Viral infection, unspecified; Z88.0 Allergy status to penicillin
CPT/HCPCS: 71046; 94640; 99284

== ENCOUNTER → 2024-02-04 | Outpatient (CLI) | payer OTHER ==
--- NOTE | 2024-02-04 21:46 | XR ---
EXAMINATION TYPE: XR chest 2V DATE OF EXAM: 02/04/2024 COMPARISON: 01/29/2024 INDICATION: Cough wheeze short of breath TECHNIQUE: Frontal and lateral views of the chest are obtained. FINDINGS: The heart size is normal. The pulmonary vasculature is normal. The lungs are clear. IMPRESSION: 1. No acute pulmonary process.
== END | disposition home or self-care (01) ==
LOC: RADXRMAIN 09:00
PROVIDERS: ATTEND Family Medicine
DX: J98.01 Acute bronchospasm (principal); R05.2 Subacute cough; R06.2 Wheezing; R06.02 Shortness of breath
CPT/HCPCS: 71046

== ENCOUNTER → 2024-02-09 | Outpatient (CLI) | payer OTHER ==
--- NOTE | 2024-02-09 10:05 | CT ---
EXAMINATION TYPE: CT chest w con DATE OF EXAM: 02/09/2024 COMPARISON: None HISTORY: cough CT DLP: 554.2 mGycm Automated exposure control for dose reduction was used. CONTRAST: CT scan of the chest is performed with IV Contrast, patient injected with 100 mL of Isovue 300. FINDINGS: LUNGS: The lungs are grossly clear, there is no concerning parenchymal mass or nodule identified. T here is no pleural effusion or pneumothorax seen. The tracheobronchial tree is patent. MEDIASTINUM: There are no greater than 1 cm hilar or mediastinal lymph nodes. No pericardial effusi on is seen. Thoracic aorta is of normal caliber. The heart is not enlarged. Nonspecific bilateral th yroid nodularity. UPPER ABDOMEN: There is evidence of hepatic steatosis. OTHER: No additional significant abnormality is seen. IMPRESSION: 1. No evidence for focal infiltrate or pulmonary nodule. 2. Hepatic steatosis. 3. Thyroid nodularity.
== END | disposition home or self-care (01) ==
LOC: RADCTMAIN 09:19
PROVIDERS: ATTEND Family Medicine
DX: K76.0 Fatty (change of) liver, not elsewhere classified (principal); R05.2 Subacute cough; R06.02 Shortness of breath
CPT/HCPCS: 71260; Q9967